=== PATIENT | female | born 1965 | race Two or more races ===

== ENCOUNTER 2020-03-25 21:23 | Emergency (ER) | payer MEDICAID ==
[~2020-03-25] VITALS: Ht 172.7 cm; Wt 83.0 kg
[2020-03-25 22:13] VITALS: BP 139/91
[2020-03-26] MEDS ORDERED: IBUPROFEN 800 MG TAB PO ONE (01:30)
[2020-03-26] MEDS ORDERED: ACETAMINOPHEN 500 MG TAB PO ONE (01:30)
[2020-03-26] MEDS ORDERED: TETANUS-DIPTH-ACEL PERTUSSIS 0.5ML SYR Tdap IM ONE (02:00)
[2020-03-26] MEDS ORDERED: NEOMYCIN-BACITRACIN-POLYM 15GM TOP OINT TOP ONE (02:15)
== END 2020-03-26 03:46 | disposition home or self-care (01) ==
LOC: ER 21:23
DX: S01.81XA Laceration without foreign body of other part of head, initial encounter (principal); S50.11XA Contusion of right forearm, initial encounter; S50.12XA Contusion of left forearm, initial encounter; I10 Essential (primary) hypertension; Z88.0 Allergy status to penicillin; Z90.49 Acquired absence of other specified parts of digestive tract; X50.9XXA Other and unspecified overexertion or strenuous movements or postures, initial encounter; Y93.89 Activity, other specified; Y92.89 Other specified places as the place of occurrence of the external cause; Y99.8 Other external cause status
CPT/HCPCS: 12013; 29505; 73090; 73700; 90471; 90715

== ENCOUNTER 2020-05-28 20:53 | Emergency (ER) | payer MEDICAID ==
[~2020-05-28] VITALS: Ht 172.7 cm; Wt 84.8 kg
[2020-05-28] MEDS ORDERED: ZINC SULFATE 220mg CAP or TAB PO ONE (21:15)
[2020-05-28] MEDS ORDERED: ASCORBIC ACID 500 MG TAB PO ONE (21:15)
[2020-05-28] MEDS ORDERED: methylPREDNISolone SOD SUCC 125 MG/2 ML VL IV ONE (21:15)
[2020-05-28 22:01] VITALS: BP 143/77
[2020-05-28] MEDS ORDERED: DOXYCYCLINE 100 MG TAB/CAP PO ONE (22:30)
[2020-05-28] MEDS ORDERED: ONDANSETRON ODT 4 MG TAB PO ONE (22:30)
[2020-05-28] MEDS ORDERED: ACETAMINOPHEN/CODEINE#3 (300/30mg) TAB PO ONE (22:30)
[2020-05-28 22:32] LABS: Basophils # (auto) 0 10 ^3/uL (0-0.2); Basophils % (auto) 0.7 % (0.0-2.0); Eosinophils # (auto) 0.1 10 ^3/uL (0-0.8); Hemoglobin 13.6 g/dL (12.2-16.2); Lymphocytes # (auto) 1.6 10 ^3/uL (0.4-5.4); Lymphocytes % (auto) 28.5 % (10.0-50.0); Mean Corpuscular Hemoglobin 32.5 pg (28.0-32.0); Mean Corpuscular Hgb Conc. 33.9 g/dL (32.0-36.0); Mean Corpuscular Volume 95.8 fL (80.0-100.0); Monocytes # (auto) 0.5 10 ^3/uL (0-1.3); Monocytes % (auto) 8.9 % (0.0-12.0); Neutrophils # (auto) 3.3 10 ^3/uL (1.6-8.6); Neutrophils % (auto) 59.9 % (37.0-80.0); Platelet Count (auto) 189 10^3/uL (140-450); Red Blood Cells 4.18 10^6/uL (4.0-5.20); Red Cell Distribution Width 13.7 % (11.8-14.3); White Blood Cell 5.5 10^3/uL (4.4-10.8)
[2020-05-28 23:36] LABS: Calcium 8.3 mg/dL (8.5-10.1); Potassium 3.9 mmol/L (3.5-5.1)
[2020-05-28 23:38] LABS: Albumin 3.5 g/dL (3.4-5.0); BUN/Creatinine Ratio 12.8
[2020-05-28 23:43] LABS: Bilirubin, Total 0.3 mg/dL (0.2-1.0); Total Protein 7.2 g/dL (6.4-8.2)
== END 2020-05-29 01:05 | disposition home or self-care (01) ==
LOC: ER 20:58
DX: I10 Essential (primary) hypertension (principal); Z20.828 Contact with and (suspected) exposure to other viral communicable diseases; Z90.49 Acquired absence of other specified parts of digestive tract; Z88.0 Allergy status to penicillin
CPT/HCPCS: 36415; 71045; 80053; 83605; 83880; 84484; 85025; 87040; 87426; 93005; 96374; 99285; C9803; J2930; Q0162; U0003